=== PATIENT | female | born 1955 | race Caucasian/White ===

== ENCOUNTER → 2018-05-27 | Outpatient (CLI) | payer BC ==
--- NOTE | 2018-05-27 10:44 | KCIC ---
EXAM: Bilateral digital screening mammogram with tomosynthesis. HISTORY: 63-year-old female presents for screening mammography. TECHNIQUE: Full-field digital craniocaudal and mediolateral oblique 2D and 3D tomosynthesis images of both breasts are obtained for evaluation. Computer aided detection with [employer] software version 9.3 was applied. COMPARISON: 07/31/2012 BREAST PARENCHYMAL DENSITY: Level B - Scattered fibroglandular densities. FINDINGS: There is no new suspicious mass, microcalcification or region of architectural distortion. IMPRESSION: BI-RADS Category 2: Benign finding(s). RECOMMENDATION: Annual mammography is recommended. If your mammogram demonstrates that you have dense breast tissue, which could hide abnormalities, and if you have other risk factors for breast cancer that have been identified, you might benefit from supplemental screening tests that may be suggested by your ordering physician. Dense breast tissue, in and of itself, is a relatively common condition. This information is not provided to cause undue concern, but rather to raise your awareness and to promote discussion with your physician regarding the presence of other risk factors, in addition to dense breast tissue. A report of your mammography results will be sent to you and your physician. You should contact your physician if you have any questions or concerns regarding this report. Mammography is a sensitive method for finding small breast cancers, but it does not detect them all and is not a substitute for careful clinical examination. A negative mammogram does not negate a clinically suspicious finding and should not result in delay in biopsying a clinically suspicious abnormality. PQRS compliance statement - Patient information was entered into a reminder system with a target due date for the next mammogram. "Our facility is accredited by the [employer] Mammography Program." Electronically signed by: Yessenia Pompa MD (05/27/2018 10:41 AM) [facility]
--- NOTE | 2018-05-27 12:56 | KCIC ---
Bone densitometry 05/27/2018 8:00 AM Indication: Postmenopausal screening exam Comparison Study: None available. Discussion: Bone Densitometry was performed with dual photon absorption of the lumbar spine and left proximal femur. Lumbar Spine: Bone average density is 0.927g/cm2 for L1-L4. T-Score is -1.1. Left femoral neck: Bone average density is 0.890g/cm2. T-Score is -0.4. IMPRESSION: Osteopenia Note: Definitions established by the World Health Organization: Normal: T-score is -1.0 or above. Osteopenia: T-score is between -1.0 and -2.5. Osteoporosis: T-score is -2.5 or below. Electronically signed by: Richard Kiran MD (05/27/2018 12:53 PM) [facility]
== END | disposition home or self-care (01) ==
LOC: KCIC DEXA 08:20
PROVIDERS: ATTEND Physician Assistant Surgical
DX: Z12.31 Encounter for screening mammogram for malignant neoplasm of breast (principal); Z13.820 Encounter for screening for osteoporosis; M85.88 Other specified disorders of bone density and structure, other site
CPT/HCPCS: 77063; 77067; 77080

== ENCOUNTER → 2018-12-20 | Outpatient (CLI) | payer BC ==
[~2018-12-20] MED LIST: ATORVASTATIN CA80 MG PO; CALC600T4 PO; GABA600T7 PO; HYDR-3164 PO; IBUP200T44 PO; LISI-334 PO; MULT1CAP15 PO
--- NOTE | 2018-12-20 15:47 | KCIC ---
Sonography of the left side of the neck Clinical indications: Slowly enlarging lump of the posterior left side of the neck. FINDINGS: High-resolution sonography of the palpable lump of the posterior left side of the neck was performed in the area indicated by the patient. There is a solid homogeneous hyperechoic mass lesion measuring 3.9 cm x 5.5 cm by 1.8 cm in size. No internal color Doppler flow seen within it. IMPRESSION: Palpable lump is a solid mass and given the sonographic characteristics most likely is a lipoma. The lipomatous nature of this mass may be confirmed with limited CT through this area if clinically needed. A sarcoma cannot be excluded by imaging. Electronically signed by: Robbie Cadet MD (12/20/2018 3:44 PM) [facility]
== END | disposition home or self-care (01) ==
LOC: KCIC US 08:57
PROVIDERS: ATTEND Physician Assistant Surgical
DX: R22.1 Localized swelling, mass and lump, neck (principal)
CPT/HCPCS: 76536

== ENCOUNTER 2019-01-03 09:16 | Day surgery (SDC) | payer BC ==
[~2019-01-03] VITALS: Ht 160 cm; Wt 113.9 kg
[~2019-01-03 09:16] MED LIST changes: -HYDR-3164 PO; +HYDROmorphone 2 MG/ML VIAL IV PRN; +IV RINGERS,LACTATED 1000ML 1,000 ML IV SCH; +LIDOCAINE 1% PF 2 ML VIAL. ID PRN; +MORPHINE SULFATE 2 MG/ML VIAL. IV PRN; +ONDANSETRON PF 4 MG/2 ML VIAL. IV PRN; +PROCHLORPERAZINE 10 MG/2 ML VIAL. IV PRN; +SCOPOLAMINE 1.5MG PATCH. TD SCH; +fentaNYL PF VIAL 100 MCG/2 ML VIAL IV PRN
[2019-01-03] MEDS ORDERED: LIDOCAINE 1%/EPI 1:100,000 20 ML VIAL. ONE (10:11)
[2019-01-03] MEDS ORDERED: MIDAZOLAM HCL/PF 2 MG/2 ML VIAL. ONE (11:17)
[2019-01-03] MEDS ORDERED: PROPOFOL 40 ML IV ONE (11:17)
[2019-01-03] MEDS ORDERED: PROPOFOL 20 ML IV ONE (11:17)
[2019-01-03] MEDS ORDERED: LIDOCAINE 2% PF 5 ML VIAL. ONE (11:17)
[2019-01-03] MEDS ORDERED: ceFAZolin 2GM PREMIX 2 GM/50 ML BAG IV ONE (12:00)
[2019-01-03] MEDS ORDERED: KETAMINE HCL IN NACL, ISO-OSM 50 MG/5 ML SYRINGE ONE (12:05)
[2019-01-03] MEDS ORDERED: DEXAMETHASONE SOD PHOS 4 MG/ML VIAL ONE (12:15)
[2019-01-03] MEDS ORDERED: ONDANSETRON PF 4 MG/2 ML VIAL. ONE (12:15)
[2019-01-03] MEDS ORDERED: SEVOFLURANE 16 TO 30 MINUTES. IH ONE (12:34)
--- NOTE | 2019-01-03 12:44 | PDOC4 ---
Operative Note Operative Note Operative Note: Preoperative Diagnosis: Posterior neck mass Postoperative Diagnosis: Same Procedure: Excision of posterior neck mass Surgeon: Taj Anesthesia: Gen. EBL: 10 mL Specimen: Neck mass to pathology Drains: None Complications: None Indication: The patient is a 63-year-old female who is referred with a bothersome posterior neck mass. She requests excision. The risks of surgery were discussed which include bleeding, infection, recurrence, pain, wound healing problems, anesthetic risk, potential need for additional surgery or procedure. She understands and would like to proceed. Description: The patient was taken to the operating room and placed supine on the operating table. Gen. anesthesia was performed. She was then laid on her right side down on the procedure table exposing the left posterior neck. The posterior neck was shaved and prepped with ChloraPrep and draped in a standard surgical manner. An incision was made to the left of midline overlying the posterior neck mass. Cautery dissection was carried down through the subcutaneous tissues. The deep subcutaneous space the mass was encountered and comprised of lobulated fatty tissue consistent with a lipoma. The mass was mobilized with a combination of blunt and cautery dissection and fully excised. The mass measured 5 x 4 cm in dimension and was sent off as a specimen and several pieces of fatty tissue. Hemostasis was achieved with cautery. The subcutaneous tissue was closed with 3-0 Vicryl. The skin was approximated with 4-0 Monocryl. A sterile dressing was then applied. The patient tolerated the procedure well and was sent to the recovery room in stable condition. At the end of the case all counts were correct. ALLYSON FIGUEROA MD January 03, 2019 12:44
--- NOTE | 2019-01-03 12:47 | DISCH ---
DISCHARGE INSTRUCTIONS Condition on Discharge Condition on Discharge: Stable Activity After Discharge Activity Instructions for Disc: Resume previous activity Diet after Discharge Diet after Discharge: Regular Wound Incision Care Wound/Incision Care: Other, see below (keep dressing clean and dry X 72 hours, may then remove and shower) Follow-Up Follow up with: Dr Figueroa in 2 weeks in office, call for appt [phone] ALLYSON FIGUEROA MD January 03, 2019 12:47
[2019-01-03] MEDS ORDERED: HYDR-3164 PO (13:23)
[2019-01-03 13:45] VITALS: BP 162/78
[2019-01-03] MEDS ORDERED: HYDROcodone/APAP 5/325MG 1 TAB TABLET PO ONE (13:45)
--- NOTE | 2019-01-05 16:06 | PATHOLOGY ---
[facility] Accession Number: [id number] . 01 Material submitted: . neck - NECK MASS . 01 Clinical history: . Neck mass . 02 Diagnosis: Segments of fibroadipose tissue, neck mass excision: - Lipoma. (JPM:elissa; 01/05/2019) QMS/01/05/2019 . 02 Comment: There is no evidence of malignancy. . 02 Electronically signed: . Pete Yost MD, Pathologist NPI- [id number] . 01 Gross description: . The specimen is received in formalin, labeled "Sarita Ferrara, neck mass", are multiple irregular fragments of yellow lobulated adipose tissue measuring 5.5 x 5.0 x 1.0 cm in aggregate. Several fragments are covered with henderson-white thin membrane. [employer] tissue is submitted in A1-A2. ([facility]; 01/03/2019) . . . . . . . . . SHS/SHS . 02 Pathologist provided ICD-10: D17.79 . 02 CPT . 597137 Specimen Comment: A courtesy copy of this report has been sent to Specimen Comment: [phone], . Specimen Comment: Report sent to / DR MEDINA Performed at: 01 [facility] [address], [place], [place] [id number] MD Roney Thorne MD Phone: [phone] Performed at: 02 [facility] [address] [place], [place] [id number] MD Pete Yost MD Phone: [phone]
== END 2019-01-03 14:15 | disposition home or self-care (01) ==
LOC: SURG 09:16
PROVIDERS: ATTEND Surgery
DX: D17.0 Benign lipomatous neoplasm of skin and subcutaneous tissue of head, face and neck (principal); I10 Essential (primary) hypertension; E78.00 Pure hypercholesterolemia, unspecified
CPT/HCPCS: 21552; 88304; A7015; J0696; J1100; J2001; J2250; J2405; J2704; J3490

== ENCOUNTER → 2020-09-11 | Outpatient (CLI) | payer BC ==
[~2020-09-11] MED LIST changes: -CALC600T4 PO; +CALC600T60 PO; +HYDR-2761 PO; +HYDR-3164 PO; -HYDROmorphone 2 MG/ML VIAL IV PRN; -IV RINGERS,LACTATED 1000ML 1,000 ML IV SCH; -LIDOCAINE 1% PF 2 ML VIAL. ID PRN; -LISI-334 PO; +LISI20TA18 PO; +METF500T16 PO; -MORPHINE SULFATE 2 MG/ML VIAL. IV PRN; -ONDANSETRON PF 4 MG/2 ML VIAL. IV PRN; -PROCHLORPERAZINE 10 MG/2 ML VIAL. IV PRN; -SCOPOLAMINE 1.5MG PATCH. TD SCH; -fentaNYL PF VIAL 100 MCG/2 ML VIAL IV PRN
== END ==
LOC: LAB 12:44
PROVIDERS: ATTEND Orthopaedic Surgery
DX: Z01.812 Encounter for preprocedural laboratory examination (principal); Z20.828 Contact with and (suspected) exposure to other viral communicable diseases
CPT/HCPCS: U0003

== ENCOUNTER 2020-09-14 07:49 | Day surgery (SDC) | payer BC ==
[~2020-09-14] VITALS: Ht 160 cm; Wt 115.7 kg
[~2020-09-14 07:49] MED LIST changes: +CALC600T6 PO; -CALC600T60 PO; -HYDR-2761 PO; +IV RINGERS,LACTATED 1000ML 1,000 ML IV SCH; +PROCHLORPERAZINE 10 MG/2 ML VIAL. IVP PRN; +fentaNYL PF VIAL 100 MCG/2 ML VIAL IVP PRN
[2020-09-14] MEDS ORDERED: LIDOCAINE 1% PF 5 ML VIAL. ONE (07:55)
[2020-09-14] MEDS ORDERED: PROPOFOL 10 MG/ML (20ML) VIAL. IV ONE (07:55)
[2020-09-14] MEDS ORDERED: 0.9 % SODIUM CHLORIDE 20 ML VIAL. IJ ONE (07:55)
[2020-09-14] MEDS ORDERED: fentaNYL PF VIAL 100 MCG/2 ML VIAL ONE (07:55)
[2020-09-14] MEDS ORDERED: INSULIN LISPRO 100 UNIT/ML 3ML VIAL for OP,RR ONLY. SQ PRN (08:30)
[2020-09-14] MEDS ORDERED: HYDR-2761 PO (10:44)
[2020-09-14] MEDS ORDERED: MORPHINE SULFATE 2 MG/ML VIAL. ONE (10:47)
[2020-09-14] MEDS: MORPHINE SULFATE 2 MG/ML VIAL. IVP PRN ×2 (10:49→11:11)
--- NOTE | 2020-09-14 10:50 | DISCH ---
DISCHARGE INSTRUCTIONS Condition on Discharge Condition on Discharge: Stable Activity After Discharge Activity Instructions for Disc: Other, see below (fine motor use of hand ok, no hard grasping) Diet after Discharge Diet after Discharge: Regular Wound Incision Care Wound/Incision Care: Do not change dressing (keep dressing dry, no change unless soiled) Contacting the DRJose Enrique after DC Call your doctor for: Concerns you may have Follow-Up Follow up with: Marvin 10 days KEMAR VILLANUEVA MD Sep 14, 2020 10:50
[2020-09-14] MEDS ORDERED: HYDROcodone/APAP 5/325MG 1 TAB TABLET ONE (11:10)
[2020-09-14] MEDS ORDERED: HYDROcodone/APAP 5/325MG 1 TAB TABLET PO ONE (11:15)
[2020-09-14 11:16] VITALS: BP 118/67
[2020-09-14] MEDS ORDERED: HYDROmorphone 2 MG/ML VIAL ONE (11:31)
[2020-09-14] MEDS: HYDROmorphone 2 MG/ML VIAL IVP PRN ×2 (11:35→11:45)
--- NOTE | 2020-09-14 20:47 | PDOC4 ---
Operative Note Operative Note Date of surgery: 09/14/2020 Preoperative diagnosis: Recurrent left carpal tunnel syndrome status post remote previous release Postoperative diagnosis: Same Operative procedure: Revision left carpal tunnel release Surgeon: Marvin Internet Marketing Intern: Dru hurley Anesthesia: [place] block Estimated blood loss: 1 cc Complications: None Operative indications: Please see my orthopedic clinic note for detailed operative indications and note that patient has recurrent numbness in the median nerve distribution of her left hand after a previous remote carpal tunnel re lease and median nerve compression at the carpal tunnel confirmed by EMG testing. I had gone over with her the possibility of incomplete relief nerve or blood vessel damage infection medical or other anesthetic complications including incisional tenderness among others all her questions were answered she wishes to proceed with surgical evaluation and treatment. Operative text: Patient was identified procedure verified patient placed in the supine position on the operating table. After adequate amounts of Malcom block anesthesia were administered the left upper extremity was prepped and draped in standard sterile fashion and after timeout was performed patient procedure identified and verified adequacy of the Malcom block was verified and a longitudinal incision was made from the distal wrist crease along her previous incision line. Dissection was carried out to the ulnar aspect of the carpal tunnel and sharp dissection carried out along the extent of the transverse carpal ligament. Median nerve was noted to have moderate compression and flexor tendons were free from any synovitis. Median nerve was well medial to the dissection of the transverse carpal ligament. Release of the transverse carpal ligament was verified to be complete both proximally and distally. A thin portion of the transverse carpal ligament was excised to prevent reapposition. Thorough irrigation carried out normal saline solution. Closure accomplished with nylon suture. Sterile dressings were then applied and fingers were noted to be warm pink following deflation of the tourniquet. Patient was returned to recovery room in stable condition having tolerated the procedure well KEMAR VILLANUEVA MD Sep 14, 2020 20:47
== END 2020-09-14 12:00 | disposition home or self-care (01) ==
LOC: SURG 07:49
PROVIDERS: ATTEND Orthopaedic Surgery
DX: G56.02 Carpal tunnel syndrome, left upper limb (principal); I10 Essential (primary) hypertension; E78.00 Pure hypercholesterolemia, unspecified; E66.9 Obesity, unspecified; M19.90 Unspecified osteoarthritis, unspecified site; E11.9 Type 2 diabetes mellitus without complications; Z87.891 Personal history of nicotine dependence; Z90.49 Acquired absence of other specified parts of digestive tract; Z90.710 Acquired absence of both cervix and uterus; Z98.890 Other specified postprocedural states; Z79.84 Long term (current) use of oral hypoglycemic drugs; Z79.899 Other long term (current) drug therapy; Z72.89 Other problems related to lifestyle
CPT/HCPCS: 64721; 82962; J0690; J1170; J2270; J2704; J3010; J3490

== ENCOUNTER → 2021-06-13 | Outpatient (CLI) | payer MEDICARE ==
[~2021-06-13] MED LIST changes: -CALC600T6 PO; +CALC600T60 PO; +HYDR-2761 PO; -IV RINGERS,LACTATED 1000ML 1,000 ML IV SCH; -PROCHLORPERAZINE 10 MG/2 ML VIAL. IVP PRN; -fentaNYL PF VIAL 100 MCG/2 ML VIAL IVP PRN
--- NOTE | 2021-06-14 09:54 | CARD ---
MR#: [id number] Date of Study: 06/13/2021 Ordering Physician: ERMA BARCLAY, Referring Physician: ERMA BARCLAY, Tech: Ky Guevara [facility] APPROVED REPORT EXAM: Two-dimensional and M-mode echocardiogram with Doppler and color Doppler. Other Information Quality : Fair Rhythm : NSRTechnically limited study due to body habitus. INDICATION Murmur RISK FACTORS Hypertension Obesity Hyperlipidemia 2D DIMENSIONS Left Atrium(2D)4.3 (1.6-4.0cm)IVSd1.1 (0.7-1.1cm) Aortic Root(2D)2.8 (2.0-3.7cm)LVDd4.3 (3.9-5.9cm) LVOT Diameter2.1 (1.8-2.4cm)PWd1.1 (0.7-1.1cm) LVDs2.0 (2.5-4.0cm)FS (%) 54.2 % SV72.6 mlLVEF(%)85.2 (>50%) Aortic Valve AoV Peak Johnson.264.7cm/sAoV VTI61.9cm AO Peak GR.28.0mmHgLVOT Peak Johnson.89.5cm/s AO Mean GR.16mmHgAVA (VMAX)1.14cm2 Mitral Valve MV E Fgsihlkh573.6cm/sMV E Peak Gr.8mmHg MV DECEL [id number] A Hjjlvrva547.2cm/s MV E Mean Gr.3mmHgE/A Ratio0.8 Pulmonary Valve PV Peak Tnutlgwg66.2cm/s Tricuspid Valve TR P. Zicabfym619yc/sTR Peak Gr.25mmHg Pulmonary Vein S1 Jrqwpfvs66.7cm/sD2 Wiudboxh59.7cm/s LEFT VENTRICLE The left ventricle is normal size. There is normal left ventricular wall thickness. The left ventricu lar systolic function is normal and the ejection fraction is within normal range. EF 55% There is nor mal LV segmental wall motion. Tissue Doppler imaging reveals moderate left ventricular diastolic dysf unction. RIGHT VENTRICLE The right ventricle is normal size. There is normal right ventricular wall thickness. The right ventr icular systolic function is normal. ATRIA The left atrium is mildly dilated. The right atrium size is normal. The interatrial septum is intact with no evidence for an atrial septal defect or patent foramen ovale as noted on 2-D or Doppler imagi ng. AORTIC VALVE The aortic valve is moderately calcified and not well visualized. Doppler and Color Flow revealed no significant aortic regurgitation. Calculated aortic valve area is 1.3 cm2 with maximum pressure gradi ent of 28 mmHg and mean pressure gradient of 16 mmHg. Visually there is at least moderate aortic sten osis. Only mild by doppler criteria. There is no aortic valvular vegetation. MITRAL VALVE Mitral annular calcification is moderate. There is no evidence of mitral valve prolapse. There is no mitral valve stenosis. Doppler and Color-flow revealed mild mitral regurgitation. TRICUSPID VALVE The tricuspid valve is normal in structure and function. Doppler and Color Flow revealed trace to mil d tricuspid regurgitation. There is no tricuspid valve prolapse or vegetation. There is no tricuspid valve stenosis. PULMONIC VALVE Doppler and Color Flow revealed no pulmonic valvular regurgitation. There is no pulmonic valvular meka nosis. GREAT VESSELS The aortic root is normal in size. The ascending aorta is normal in size. The IVC is normal in size a nd collapses >50% with inspiration. PERICARDIAL EFFUSION There is no pleural effusion. There is no evidence of significant pericardial effusion. Critical Notification Critical Value: No <Conclusion> The left ventricular systolic function is normal and the ejection fraction is within normal range. EF 55% There is normal LV segmental wall motion. Calculated aortic valve area is 1.3 cm2 with maximum pressure gradient of 28 mmHg and mean pressure g radient of 16 mmHg. Visually there is at least moderate aortic stenosis. Only mild by doppler illlie [place]. Signed by : Erma Barclay, Electronically Approved : 06/14/2021 09:54:51
== END ==
LOC: ECHO 07:29
PROVIDERS: ATTEND Internal Medicine Cardiovascular Disease
DX: I08.3 Combined rheumatic disorders of mitral, aortic and tricuspid valves (principal); R01.1 Cardiac murmur, unspecified
CPT/HCPCS: 93306